=== PATIENT | male | born 1970 | race Caucasian/White ===

== ENCOUNTER 2025-03-09 17:05 | Emergency (ER) | payer MEDICARE, OTHER ==
[~2025-03-09] VITALS: Ht 185.4 cm; Wt 136.1 kg
[2025-03-09 17:07] VITALS: BP 143/90
[2025-03-09 17:53] LABS: PLATELET COUNT (AUTO) 299 K/uL (152-348); RED BLOOD CELL COUNT(AUTO) 4.36 MIL/uL (4.06-5.63); RED CELL DISTRIBUTION WIDTH 13.0 % (12.1-16.2); WHITE BLOOD COUNT (AUTO) 9.7 K/uL (3.6-10.2)
[2025-03-09 17:58] LABS: CREATININE 0.8 mg/dL (0.6-1.3); SODIUM SERUM 139 mmol/L (136-145); UREA NITROGEN, BLOOD 20 mg/dL (7-18)
[2025-03-09 18:04] LABS: ASPARTATE AMINOTRANSFERASE 21 U/L (15-37); TOTAL PROTEIN, SERUM 7.0 g/dL (6.4-8.2)
[2025-03-09 18:54] LABS: *BILIRUBIN,URIN NEGATIVE (NEGATIVE); *BLOOD, URINE NEGATIVE (NEGATIVE); *CLARITY,URINE CLEAR (CLEAR); *COLOR,URINE YELLOW (YELLOW); *KETONES,URINE NEGATIVE (NEGATIVE); *PROTEIN,URINE NEGATIVE (NEGATIVE); *UROBILINOGEN,URINE 0.2 E.U./dl (NORMAL); LEUKOCYTE ESTERASE ,URINE NEGATIVE (NEGATIVE); NITRITE, URINE NEGATIVE (NEGATIVE)
[2025-03-09 18:55] LABS: UGLUCOSE 3+ (NEGATIVE)
[2025-03-09] MEDS ORDERED: OLANZAPINE 10 MG VIAL IM ONE (18:56)
[2025-03-09] MEDS ORDERED: LORAZEPAM 2 MG/1 ML VIAL ONE (18:57)
[2025-03-09 19:08] LABS: *AMPHETAMINE, URINE NEGATIVE (NEGATIVE); *BARBITURATE, URINE NEGATIVE (NEGATIVE); *BENZODIAZEPINE, URINE NEGATIVE (NEGATIVE); *CANNABINOID, URINE NEGATIVE (NEGATIVE); *COCCAINE, URINE NEGATIVE (NEGATIVE); *OPIATE, URINE NEGATIVE (NEGATIVE); *PHENCYCLIDINE SCREEN,URINE NEGATIVE (NEGATIVE); FENTANYL, URINE NEGATIVE (NEGATIVE)
[2025-03-09] MEDS: OLANZAPINE 10 MG VIAL IM ONE (19:11)
[2025-03-09] MEDS: LORAZEPAM 2 MG/1 ML VIAL IM ONE (19:11)
[2025-03-09 20:57] VITALS: BP 116/62; TEMP 98; O2SAT 98
== END 2025-03-09 21:11 ==
LOC: ER 17:05
DX: R45.1 Restlessness and agitation (principal); E11.9 Type 2 diabetes mellitus without complications; F25.9 Schizoaffective disorder, unspecified; F31.9 Bipolar disorder, unspecified; G47.00 Insomnia, unspecified; I50.9 Heart failure, unspecified; Z88.7 Allergy status to serum and vaccine; Z91.148 Patient's other noncompliance with medication regimen for other reason; Z79.899 Other long term (current) drug therapy
CPT/HCPCS: 99284; 80076; 80048; 85025; 36415; 93005; 96372 ×2; 80299; 80307; 81001; J2060; A4606; A4663; J2358